=== PATIENT | female | born 1995 | race Caucasian/White ===

== ENCOUNTER 2022-11-08 10:55 | Emergency (ER) | payer BC, MEDICAID, SELFPAY ==
[2022-11-08 11:09] VITALS: BP 95/61; PULSE 67; RESP 18; TEMP 36.6; O2SAT 100
--- NOTE | 2022-11-08 12:11 | ED.URI ---
HPI - URI/Sore Throat General Chief Complaint: Upper Respiratory Infection Stated Complaint: Facial Swelling/Sore Throat Time Seen by Provider: 11/08/22 12:11 Source: patient, RN notes reviewed and old records reviewed Mode of arrival: ambulatory Limitations: no limitations History of Present Illness HPI Narrative: 27 year old female who presents to [facility] care with complaints of 2 day history of sore throat, runny nose, and some swelling to her right cheek area where patient has small pimple type of lesion. Patient reports that her daughter tested positive strep a few days ago.. Patient received some Bactrim from her PCP for urinary tract infection but has not yet started medication.Patient reports no fevers, chills or sweats or any body aches. MD elicited complaint: sore throat and other (facial swelling) Onset (ago): day(s) (2) Pain scale (0-10): 5 Able to tolerate fluids by mouth: Yes Treatments prior to arrival: none Related Data Home Medications Medication Instructions Recorded Confirmed norelgestromin 150 mcg-e.estradiol See Rx Instructions .Route .COMPLEX 11/08/22 11/08/22 35 mcg/24 hr weekly transderm patch (Xulane) sulfamethoxazole 800 See Rx Instructions .Route .COMPLEX 11/08/22 11/08/22 mg-trimethoprim 160 mg tablet Allergies Allergy/AdvReac Type Severity Reaction Status Date / Time No Known Allergies Allergy Verified 11/08/22 11:48 Review of Systems Review of Systems: CONSTITUTIONAL: Denies malaise, chills, sweats, or fever. EYES: Denies visual changes, redness, or discharge. ENT: Reports rhinorrhea, congestion, sinus pain, no otalgia positive for sore throat. CARDIOVASCULAR: Denies chest pain, palpitations, or edema. RESPIRATORY: Reports no cough.? Denies dyspnea. GASTROINTESTINAL: Denies abdominal pain, nausea, vomiting, diarrhea SKIN: Denies rash or itching.small pimple right cheek with minimal swelling MUSCULOSKELETAL: Denies myalgia. NEUROLOGIC: Denies headache. All systems reviewed & are unremarkable except as noted in HPI and below PMFSH Past Medical History Medical History (Updated 11/10/22 @ 09:45 by Chandrika Schumacher NP) UTI (urinary tract infection) Social History Social History (Updated 11/10/22 @ 09:39 by Chandrika Schumacher NP) Smoking status: Never smoker Alcohol intake: current Alcohol use details: social Substance use type: does not use Comments At time of signature, agree with nursing past medical, surgical, social and family history. There is no relevant family history pertinent to the presenting complaint Exam Narrative: GENERAL: Well-appearing, well-nourished, and in no acute distress. HEAD: Normocephalic EYES: PERRLA, conjunctivae clear ENT: Nares clear, turbinates edematous and erythematous, clear discharge. Mucous membranes moist. TM pearly moffett with dull light reflex bilaterally; no tragal tenderness. Oropharynx erythematous without lesions. Tonsils not enlarged and without exudate, no drooling, no hoarseness, no trismus, uvula midline. NECK: Supple. No lymphadenopathy CHEST: Clear to auscultation, breath sounds equal. No wheezing, rhonchi, rales, or stridor. No respiratory distress, speaks in full sentences. HEART: Regular rate and rhythm. No murmur heard. SKIN: Warm, dry, no rash.small pimple right upper cheek NEURO: Alert and oriented x3. PSYCH: Normal mood and affect Course Course Emergency Course: Patient is aware of diagnosis, understands and agrees to treatment plan.? Anticipatory guidance given.? Patient agrees to follow-up as directed and is aware of reasons to seek care at the emergency department. Portions of this record may have been created with voice recognition software Level of Care: Express Care Visit Vital Signs Vital signs: Vital Signs Temperature 36.6 C 11/08/22 11:09 Pulse Rate 67 11/08/22 11:09 Respiratory Rate 18 11/08/22 11:09 Blood Pressure 95/61 L 11/08/22 11:09 Pulse O
== END 2022-11-08 12:20 | disposition home or self-care (01) ==
PROVIDERS: Emergency Provider Registered Nurse; PCP Family Medicine
DX: J06.9 Acute upper respiratory infection, unspecified (principal); L98.9 Disorder of the skin and subcutaneous tissue, unspecified
CPT/HCPCS: 87081; 87880; 99213; G0463